=== PATIENT | male | born 1970 | race African-American/Black ===

== ENCOUNTER 2017-05-29 12:00 | Emergency (ER) | payer SELFPAY ==
[~2017-05-29] VITALS: Ht 182.9 cm; Wt 91.0 kg
[2017-05-29 15:45] VITALS: BP 127/88
[2017-05-29] MEDS ORDERED: IBUPROFEN 600MG TABLET PO ONE (15:45)
[2017-05-29 16:08] LABS: HEMATOCRIT. 46.4 % (42.0-52.0); MEAN CORPUSCULAR HEMOGLOBIN 31.8 pg (28.0-32.0); MEAN CORPUSCULAR VOLUME 92.5 fL (80.0-94.0); MEAN PLATELET VOLUME 8.1 fl (7.4-10.4); PLATELET 276 x1000/uL (130-400); RED BLOOD CELL COUNT 5.02 mill/uL (4.7-6.1); RED CELL DISTRIBUTION WIDTH 14.1 % (11.6-14.6)
[2017-05-29 16:09] LABS: CHLORIDE 103 mEq/L (98-107)
[2017-05-29 16:21] LABS: CARBON DIOXIDE 30 mEq/L (21-32)
[2017-05-29 16:40] LABS: CLARITY URINE CLEAR (CLEAR); COLOR URINE DARK YELLOW (YELLOW); KETONES URINE TRACE (NEGATIVE); LEUKOCYTE ESTERASE URINE NEGATIVE (NEGATIVE); NITRITE URINE NEGATIVE (NEGATIVE); OCCULT BLOOD URINE NEGATIVE (NEGATIVE); PH URINE 5.5 (4.5-8.0); PROTEIN URINE TRACE (NEGATIVE); SPECIFIC GRAVITY URINE 1.032 (1.005-1.030)
[2017-05-29 17:04] LABS: ATYPICAL LYMPHOCYTES 2; PLATELET ESTIMATE NORMAL
== END 2017-05-29 17:09 | disposition home or self-care (01) ==
LOC: ER 12:00
DX: B34.9 Viral infection, unspecified (principal); R53.1 Weakness; Z88.0 Allergy status to penicillin
CPT/HCPCS: 36415; 80053; 81001; 85025; 99284

== ENCOUNTER 2024-03-22 15:06 | Emergency (ER) | payer MEDICARE ==
[~2024-03-22] VITALS: Ht 182.9 cm; Wt 87.0 kg
[2024-03-22 15:13] VITALS: O2SAT 100
[2024-03-22] MEDS: LIDOCAINE HCL 1% 20ML VIAL INFIL ONE (16:35)
[2024-03-22] MEDS: IBUPROFEN 800MG TABLET PO ONE (17:47)
[2024-03-22 17:51] VITALS: BP 125/80; PULSE 88; RESP 18; TEMP 37.16964; O2SAT 100
== END 2024-03-22 18:00 | disposition home or self-care (01) ==
LOC: ER 15:06
DX: L72.3 Sebaceous cyst (principal); Z88.0 Allergy status to penicillin
CPT/HCPCS: 10060; 99282; J3490; Z7610 ×4

== ENCOUNTER 2024-03-24 11:03 | Emergency (ER) | payer MEDICAID, MEDICARE ==
[~2024-03-24] VITALS: Ht 182.9 cm; Wt 83.9 kg
[2024-03-24 11:08] VITALS: O2SAT 99
[2024-03-24] MEDS ORDERED: SULF1TAB48 MT (11:55)
[2024-03-24] MEDS ORDERED: IBUP-2030 MT (11:55)
[2024-03-24 11:59] VITALS: BP 131/74; PULSE 70; RESP 16; TEMP 36.78072; O2SAT 99
== END 2024-03-24 12:41 | disposition home or self-care (01) ==
LOC: ER 11:09
DX: L72.3 Sebaceous cyst (principal); Z48.00 Encounter for change or removal of nonsurgical wound dressing; Z88.0 Allergy status to penicillin; Z91.030 Bee allergy status
CPT/HCPCS: 99283